=== PATIENT | female | born 1995 | race Asian ===

== ENCOUNTER 2017-08-17 18:34 | Emergency (ER) | payer OTHER ==
[2017-08-17 18:38] VITALS: RESP 18
--- NOTE | 2017-08-17 18:48 | CPEKG ---
Heart Rate: 86 RR Interval: 698 P-R Interval: 148 QRSD Interval: 76 QT Interval: 360 QTC Interval: 431 P [place]: 79 QRS [place]: 56 T Wave [place]: 25 EKG Severity - BORDERLINE ECG - EKG Impression: SINUS RHYTHM EKG Impression: LOW VOLTAGE THROUGHOUT Electronically Signed By: Toro Vo 17-Aug-2017 20:14:48
[2017-08-17] MEDS ORDERED: NS 1,000 ML IV ONE (19:13)
--- NOTE | 2017-08-17 19:31 | EDPHY ---
H & P Stated Complaint: near syncope Time Seen by Provider: 08/17/17 19:12 HPI/ROS: CHIEF COMPLAINT: Chest pain, near syncope HISTORY OF PRESENT ILLNESS: The patient presents to the ED after she developed an episode of chest pain while playing softball. This was followed by an episode of near-syncope and generalized malaise. The patient denies any pleuritic chest pain. She denies asymmetric calf pain or swelling. She denies prior history of PE or DVT. She denies decreased po intake or medication changes. She denies recent illness. REVIEW OF SYSTEMS: A comprehensive 10 point review of systems is otherwise negative aside from elements mentioned in the history of present illness. Source: Patient - Personal History LMP (Females 10-55): 15-21 Days Ago - Medical/Surgical History Other PMH: anxiety - Social History Smoking Status: Never smoked - Physical Exam Exam: General Appearance: Alert, no distress Eyes: Pupils equal and round no pallor or injection ENT, Mouth: Mucous membranes moist Respiratory: There are no retractions, lungs are clear to auscultation Cardiovascular: Regular rate and rhythm Gastrointestinal: Abdomen is soft and nontender, no masses, bowel sounds normal Neurological: A&O, normal motor function, normal sensory exam, normal cranial nerves Skin: Warm and dry, no rashes Musculoskeletal: Neck is supple nontender Extremities: symmetrical, full range of motion Constitutional: Initial Vital Signs Temperature (C) 37.2 C 08/17/17 18:36 Heart Rate 94 08/17/17 18:36 Respiratory Rate 18 08/17/17 18:36 Blood Pressure 136/105 H 08/17/17 18:36 O2 Sat (%) 97 08/17/17 18:36 O2 Delivery Mode Room Air Allergies/Adverse Reactions: No Known Allergies Allergy (Unverified 08/17/17 18:38) Home Medications: Medication Instructions Recorded Amitriptyline HCl 08/17/17 Escitalopram Oxalate 08/17/17 Medical Decision Making - Diagnostics EKG Interpretation: EKG: Complete interpretation has been separately recorded in the [email or web address] archive. Summary impression: Low-voltage, sinus rhythm, rate 86 ED Course/Re-evaluation: The patient presents to the ED after an episode of chest pain with associated presyncope. The patient denies prior history of the symptoms. The patient did have some mild lightheadedness and malaise following the event which occurred while she was playing softball. She did not report particularly heavy exertion at the time of her symptoms. The patient was noted to have an EKG which demonstrated low-voltage in a sinus rhythm. The patient underwent a formal echocardiogram which demonstrated no evidence of a pericardial effusion or outflow obstruction. The patient's D-dimer is negative which I feel adequately excludes pulmonary embolism. The patient's test is normal and her electrolytes are within normal limits. The patient was placed on a petroleum plant operator and observed in the emergency department for several hours without evidence of arrhythmia, recurrent symptoms or vital sign abnormality. The patient was re-evaluated at 9:00 p.m.. She is asymptomatic at this point time. I do feel that she can be discharged home. I would like the patient to follow up with Cardiology for any recurrent symptoms. She is advised to return to the ED immediately for severe chest pain, difficulty breathing or other concerns. Differential Diagnosis: Differential diagnosis considered includes vasovagal episode, arrhythmia, anemia , metabolic abnormality, ruptured ectopic , pericardial effusion, outflow tract obstruction, pulmonary embolism - Data Points Laboratory Results: Laboratory Results 08/17/17 19:30 08/17/17 19:30 08/17/17 08/17/17 08/17/17 19:30 19:30 19:30 WBC RBC Hgb Hct MCV MCH MCHC RDW Plt Count MPV Neut % (Auto) Lymph % (Auto) [place] % (Auto) Eos % (Auto) Baso % (Auto) Nucleat RBC Rel Count Absolute Neuts (auto) Absolute Lymphs (auto) Absolute Monos (auto) Absolute Eos (auto) Absolute Basos (auto) Absolute Nucleated RBC Immature Gran % Immature Gran # D-Dimer < 0.27 ug/mLFEU ug/mLFEU (0.00-0.50) Sodium 139 mEq/L mEq/L (135-145) Potassium 4.0 mEq/L mEq/L (3.5-5.2) Chloride 108 mEq/L mEq/L (97-110) Carbon Dioxide 19 mEq/l L mEq/l (22-31) Anion Gap 12 mEq/L mEq/L (8-16) BUN 12 mg/dL mg/dL (7-23) Creatinine 0.7 mg/dL mg/dL (0.6-1.0) Estimated GFR > 60 Glucose 99 mg/dL mg/dL (70-100) Calcium 8.7 mg/dL mg/dL (8.5-10.4) Beta HCG, Qual NEGATIVE 08/17/17 19:30 WBC 9.78 10^3/uL H 10^3/uL (3.80-9.50) RBC 4.31 10^6/uL 10^6/uL (4.18-5.33) Hgb 12.1 g/dL L g/dL (12.6-16.3) Hct 37.0 % L % (38.0-47.0) MCV 85.8 fL fL (81.5-99.8) MCH 28.1 pg pg (27.9-34.1) MCHC 32.7 g/dL g/dL (32.4-36.7) RDW 13.8 % % (11.5-15.2) Plt Count 331 10^3/uL 10^3/uL (150-400) MPV 9.3 fL fL (8.7-11.7) Neut % (Auto) 69.9 % % (39.3-74.2) Lymph % (Auto) 21.6 % % (15.0-45.0) [place] % (Auto) 7.1 % % (4.5-13.0) Eos % (Auto) 0.6 % % (0.6-7.6) Baso % (Auto) 0.5 % % (0.3-1.7) Nucleat RBC Rel Count 0.0 % % (0.0-0.2) Absolute Neuts (auto) 6.84 10^3/uL H 10^3/uL (1.70-6.50) Absolute Lymphs (auto) 2.11 10^3/uL 10^3/uL (1.00-3.00) Absolute Monos (auto) 0.69 10^3/uL 10^3/uL (0.30-0.80) Absolute Eos (auto) 0.06 10^3/uL 10^3/uL (0.03-0.40) Absolute Basos (auto) 0.05 10^3/uL 10^3/uL (0.02-0.10) Absolute Nucleated RBC 0.00 10^3/uL 10^3/uL (0-0.01) Immature Gran % 0.3 % % (0.0-1.1) Immature Gran # 0.03 10^3/uL 10^3/uL (0.00-0.10) D-Dimer Sodium Potassium Chloride Carbon Dioxide Anion Gap BUN Creatinine Estimated GFR Glucose Calcium Beta HCG, Qual Medications Given: Discontinued Medications Sodium Chloride (Ns) 1,000 mls @ 0 mls/hr IV EDNOW ONE; Wide Open PRN Reason: Protocol Stop: 08/17/17 19:14 Last Admin: 08/17/17 19:18 Dose: 1,000 mls Ibuprofen (Motrin) 600 mg PO EDNOW ONE Stop: 08/17/17 20:57 Last Admin: 08/17/17 20:56 Dose: 600 mg Departure - Departure Disposition: Home, Routine, Self-Care Clinical Impression: Vasovagal episode, Chest pain Condition: Good Instructions: Hypotension (ED) Additional Instructions: 1. The testing in the emergency department demonstrates no obvious abnormality , blood clot, cardiac malfunction or other serious explanation for chest pain. 2. Please follow up with our on-call rubbish collection supervisor, Dr. Schaefer, for any persistent symptoms. Please return to the ED for severe chest pain, difficulty breathing or other concerns. Referrals: Gabrielle Schaefer MD [Medical Doctor] - As per Instructions
[2017-08-17 19:38] LABS: PLATELET COUNT 331 10^3/uL (150-400)
[2017-08-17] MEDS ORDERED: IBUPROFEN 600 MG TAB PO ONE ×2 (20:54→20:56)
--- NOTE | 2017-08-17 20:58 | ECHO ---
[email or web address] [address] [address] Main: [phone] Fax: Transthoracic Echocardiogram Name: TIM JENKINS MR#: [id number] Study Date: 08/17/2017 Study Time: 08:19 PM Date of : 1995 Age: 21 year(s) Height: 162.6 cm (64 in.) Weight: 61.24 kg (135 lb.) BSA: 1.66 m2 Gender: Female Examination: Echo Indication: Chest Pain, Low voltage, Eval for pericardial effusion Image Quality: Contrast: Requested by: Toro Vo BP: 128 mmHg/90 mmHg Heart Rate: Rhythm: Normal sinus rhythm Indication: Chest Pain, Low voltage, Eval for pericardial effusion Procedure Staff Director Regulatory Agency: Chuy Lieberman Reading Physician: Gabrielle Schaefer Requesting Provider: Conclusions: Normal size left ventricle. No LV hypertrophy. Normal global systolic LV function. No regional wall motion abnormality. Normal diastolic LV function. Normal size right ventricle. Normal RV function. No pericardial effusion. There are no significant valvular abnormalities. There is no previous echocardiogram for comparison. Measurements: Chambers Valvular Assessment AV/MV Valvular Assessment TV/PV Normal Normal Normal Name Value Range Name Value Range Name Value Range IVSd (2D): 0.9 cm (0.6 cm-1.1 AV Vmax: 0.90 m/s (1 m/s-1.7 PV Vmax: 0.90 m/s (0.6 m/s-0.9 cm) m/s) m/s) LVDd (2D): 4.3 cm (3.9 cm-5.3 AV maxP mmHg ( - ) PV PGmax: 3 mmHg ( - ) cm) LVOT Vmax: 0.66 m/s (0.7 m/s-1.1 LVDs (2D): 2.4 cm (2.1 cm-4 m/s) cm) MV E Vmax: 0.72 m/s ( - ) LVPWd (2D): 0.9 cm ( - ) MV A Vmax: 0.55 m/s ( - ) MV E/A: 1.31 ( - ) Continued Measurements: Chambers Valvular Assessment AV/MV Name Value Name Value Patient: TIM JENKINS Study Date: 08/17/2017 Page 1 of 2 08:19 PM LADs Lon.1 cm MV E/E' Septal: 7.70 LA Area: 12.1 cm2 MV E/E' Lateral: 4.40 LA Volume: 34 ml LA Volume Index: 20.5 ml/m2 Findings: Left Ventricle: Normal size left ventricle. No LV hypertrophy. Normal global systolic LV function. No regional wall motion abnormality. Normal diastolic LV function. Right Ventricle: Normal size right ventricle. Normal RV function. Left Atrium: The left atrium is normal in size. Right Atrium: The right atrium is normal in size. Mitral Valve: The mitral valve is normal in appearance and function. Aortic Valve: The aortic valve is normal in appearance and function. Tricuspid Valve: The tricuspid valve is normal in appearance and function. Pulmonic Valve: The pulmonic valve is normal in appearance and function. Aorta: The aorta is normal. Pericardium: No pericardial effusion. 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 (No Signature Object) Patient: TIM JENKINS Study Date: 08/17/2017 Page 2 of 2 08:19 PM [id number]
[2017-08-17 21:46] VITALS: BP 125/78; PULSE 89; TEMP 98.6; O2SAT 95
== END 2017-08-17 21:49 | disposition home or self-care (01) ==
DX: R55 Syncope and collapse (principal); R07.9 Chest pain, unspecified; E86.9 Volume depletion, unspecified

== ENCOUNTER → 2017-08-26 | Outpatient (CLI) | payer OTHER | LOC: BMCIMAGING 15:39 | PROVIDERS: ATTEND Internal Medicine | DX: R06.02 Shortness of breath (principal) ==